=== PATIENT | male | born 1980 | race Caucasian/White ===

== ENCOUNTER 2019-04-10 11:36 | Emergency (ER) | payer BC ==
--- NOTE | 2019-04-10 12:13 | EKG REPORT ---
SEVERITY:- NORMAL ECG - SINUS RHYTHM ST ELEV, PROBABLE NORMAL EARLY REPOL PATTERN : Confirmed by: Lucia Pope MD 10-Apr-2019 12:12:12
[2019-04-10] MEDS ORDERED: TETRACAINE HCL 0.5% OPH SOLN 4 ML OS ONE (12:20)
--- NOTE | 2019-04-10 12:24 | ER Document Report ---
ED Medical Screen (RME) - General Chief Complaint: Chest Pain Stated Complaint: EYE PAIN Time Seen by Provider: 04/10/19 12:15 Mode of Arrival: Ambulatory Information source: Patient Notes: Patient is a 38-year-old male presenting to the emergency department with several complaints today. Complaint #1 is that he has a possible foreign body to his right eye. He reports yesterday he was working with metal and believes a metal shard went into the right eye. He has redness and pain to this area. He denies the use of any contact lenses, reports mildly blurred vision. Complaint #2 is left-sided chest pain that started this morning. He reports the pain starts in the sternal area and radiates up to his left chest into his left shoulder and down his left arm. He also reports it radiates straight through to his back. He reports associated shortness of breath and nausea but denies any diaphoresis. He reports the pain feels like an achy constant pain. Exam: Conjunctiva injected to right eye. No reproducible pain on the sternum or in the left chest however there is reproducible pain when he got up towards the left scapular area and shoulder. Lung sounds clear and equal bilaterally. I have greeted and performed a rapid initial assessment of this patient. A comprehensive ED assessment and evaluation of the patient, analysis of test results and completion of the medical decision making process will be conducted by additional ED providers. I have specifically instructed the patient or family members with the patient to immediately return to any nursing staff should anything change in the patient's condition or with their chief complaint. This medical record was dictated with voice recognizing software. There may be grammatical, syntax errors that are unintended. TRAVEL OUTSIDE OF THE [place] IN LAST 30 DAYS: No - Related Data Allergies/Adverse Reactions: No Known Allergies Allergy (Verified 04/10/19 11:37) Past Medical History - Social History Frequency of alcohol use: None Drug Abuse: None Renal/ Medical History: Denies: Hx Peritoneal Dialysis - Immunizations Hx Diphtheria, Pertussis, Tetanus Vaccination: Yes - 2006 Physical Exam - Vital signs Vitals: Temp Pulse Resp BP Pulse Ox 97.8 F 57 L 20 121/78 98 04/10/19 11:49 04/10/19 11:49 04/10/19 11:49 04/10/19 11:49 06/22/19 11:49 Course - Vital Signs Vital signs: Temp Pulse Resp BP Pulse Ox 97.8 F 57 L 20 121/78 98 04/10/19 11:49 04/10/19 11:49 04/10/19 11:49 04/10/19 11:49 04/10/19 11:49
[2019-04-10 13:08] LABS: MEAN CORPUSCULAR VOLUME 95 fl (80-97)
--- NOTE | 2019-04-10 13:12 | RADIOLOGY REPORT (SQ) ---
EXAM DESCRIPTION: CHEST SINGLE VIEW COMPLETED DATE/TIME: 04/10/2019 12:46 pm REASON FOR STUDY: chest pain COMPARISON: None. EXAM PARAMETERS: NUMBER OF VIEWS: One view. TECHNIQUE: Single frontal radiographic view of the chest acquired. RADIATION DOSE: NA LIMITATIONS: None. FINDINGS: LUNGS AND PLEURA: No opacities, masses or pneumothorax. No pleural effusion. MEDIASTINUM AND HILAR STRUCTURES: No masses. Contour normal. HEART AND VASCULAR STRUCTURES: Heart normal in size. Normal vasculature. BONES: No acute findings. HARDWARE: None in the chest. OTHER: No other significant finding. IMPRESSION: NO ACUTE RADIOGRAPHIC FINDING IN THE CHEST. TECHNICAL DOCUMENTATION: JOB ID: [id number] [employer]- All Rights Reserved Reading location - IP/workstation name: [email or web address]
[2019-04-10 13:23] LABS: ABSOLUTE BASOPHILS # (AUTO) 0.1 10^3/uL (0.0-0.2); ABSOLUTE EOSINOPHILS # (AUTO) 0.3 10^3/uL (0.0-0.6); ABSOLUTE LYMPHOCYTES (AUTO) 1.8 10^3/uL (0.5-4.7); ABSOLUTE MONOCYTES (AUTO) 0.5 10^3/uL (0.1-1.4); ABSOLUTE NEUT (AUTO) 9.2 10^3/uL (1.7-8.2); ALANINE AMINOTRANSFERASE 33 U/L (21-72); ALKALINE PHOSPHATASE 80 U/L (38-126); ANION GAP 11 (5-19); ASPARTATE AMINO TRANSFERASE 34 U/L (17-59); BASOPHILS % (AUTO) 0.5 % (0-2); BILIRUBIN,DIRECT 0.3 mg/dL (0.0-0.4); BILIRUBIN,TOTAL 0.7 mg/dL (0.2-1.3); BLOOD UREA NITROGEN 15 mg/dL (7-20); CALCIUM 10.4 mg/dL (8.4-10.2); CARBON DIOXIDE 24 mmol/L (22-30); CHLORIDE 104 mmol/L (98-107); CREATINE KINASE 248 U/L (55-170); EOSINOPHILS % (AUTO) 2.1 % (0-6); GLUCOSE 102 mg/dL (75-110); HEMATOCRIT 53.1 % (37.9-51.0); HEMOGLOBIN 18.1 g/dL (13.5-17.0); LYMPHOCYTES % (AUTO) 15.5 % (13-45); MEAN CORPUSCULAR HEMOGLOBIN 32.3 pg (27.0-33.4); MEAN CORPUSCULAR HGB CONC 34.2 g/dL (32.0-36.0); MONOCYTES % (AUTO) 4.5 % (3-13); PLATELET COUNT 293 10^3/uL (150-450); POTASSIUM 5.4 mmol/L (3.6-5.0); RED BLOOD COUNT 5.62 10^6/uL (4.35-5.55); SEGMENTED NEUTROPHILS % (AUTO) 77.4 % (42-78); SODIUM 138.9 mmol/L (137-145); TOTAL CELLS COUNTED % (AUTO) 100 %; TOTAL PROTEIN 7.7 g/dL (6.3-8.2); WHITE BLOOD COUNT 11.9 10^3/uL (4.0-10.5)
--- NOTE | 2019-04-10 15:26 | ER Document Report ---
ED General - General Chief Complaint: Chest Pain Stated Complaint: EYE PAIN Time Seen by Provider: 04/10/19 12:15 Mode of Arrival: Ambulatory Notes: 38-year-old male presents to the ER complaining of right eye pain and left chest pain. The patient states he rolled over in bed this morning and felt something pop in his chest and had sharp chest pain. He denies fever chills cough or sore throat. States is worse when he takes a deep breath or moves. He states he was just getting up to get out of bed this morning when this happened. Patient denies calf pain leg swelling denies black bloody or tarry stools he also states he was grinding some metal yesterday and got some of it in his right eye. He states his vision is otherwise well states he has some mild irritation and watering due to that. TRAVEL OUTSIDE OF THE [place] IN LAST 30 DAYS: No - Related Data Allergies/Adverse Reactions: No Known Allergies Allergy (Verified 04/10/19 11:37) Past Medical History - General Information source: Patient - Social History Smoking Status: Current Every Day Smoker Frequency of alcohol use: None Drug Abuse: None Family History: Reviewed & Not Pertinent Patient has suicidal ideation: No Patient has homicidal ideation: No Renal/ Medical History: Denies: Hx Peritoneal Dialysis - Immunizations Hx Diphtheria, Pertussis, Tetanus Vaccination: Yes - 2006 Review of Systems - Review of Systems Constitutional: denies: Chills, Fever EENT: Eye pain, Eye discharge. denies: Blurred vision Cardiovascular: Chest pain. denies: Palpitations, Heart racing, Orthopnea, Dyspnea, Syncope, Dizziness Respiratory: Hurts to breathe. denies: Cough, Hemoptysis, Short of breath, Sputum, Wheezing Gastrointestinal: denies: Abdominal pain, Nausea, Vomiting Genitourinary: denies: Burning, Dysuria Musculoskeletal: denies: Back pain -: Yes All other systems reviewed and negative Physical Exam - Vital signs Vitals: Temp Pulse Resp BP Pulse Ox 97.8 F 57 L 20 121/78 98 04/10/19 11:49 04/10/19 11:49 04/10/19 11:49 04/10/19 11:49 04/10/19 11:49 - Notes Notes: GENERAL_APPEARANCE: well_nourished, alert, cooperative, appears uncomfortable VITALS: reviewed, see vital signs table. HEAD: no_swelling\tenderness on the head. EYES: PERRL, EOMI, conjunctiva_injected right eye NOSE: no_nasal_discharge. MOUTH: (-)decreased moisture. Severe poor dentition diffusely multiple teeth rotted off at the gum THROAT: no_tonsilar_inflammation, no_airway_obstruction. no_lymphadenopathy NECK: supple, no_neck_tenderness, (-)thyromegaly. BACK: no_back_tenderness. CHEST_WALL: Left chest wall_chest_tenderness. No crepitus or subcutaneous emphysema LUNGS: no_wheezing, no_rales, no_rhonchi, (-)accessory muscle use, good air exchange bilateral. HEART: normal_rate, normal_rhythm, normal_S1, normal_S2, (-)S3, (-)S4, no_murmur, no_rub. ABDOMEN: normal_BS, soft, no_abd_tenderness, (-)guarding, (-)rebound, no_organomegaly, no_abd_masses. EXTREMITIES: good pulses in all_extremities, no_swelling\tenderness in the extremities, no_edema. SKIN: warm, dry, good_color, no_rash. MENTAL_STATUS: speech_clear, oriented_X_3, normal_affect, responds_appropriately to questions. NEURO: Neg Motor or Sensory Deficits on exam, CN 2-12 intact, DTR 2+ symmetric x 4, No cerbellar signs Course - Re-evaluation Re-evalutation: 04/10/19 15:23 38-year-old male arrives at the ER complaining of chest discomfort. The patient states he felt a pop where he rolled over to get a chest x-ray to be sure he did have a pneumothorax EKG shows a sinus rhythm no acute ST abnormalities. Patient otherwise low risk for ACS. His risk factors are low. Wells score is low for risk assessment for PE Patient's right eye had a small mickie of metal noted at the 10 o'clock position. The area was numbed with proparacaine/tetracaine. Using a cotton tip applicator I was able to pluck the piece of metal out without difficulty I the eye with floor seen and the crater did uptake floor seen but there is no centralized clearing. No other abrasions noted. Will prescribe antibiotic eyedrops for the patient for home and NSAIDs for his chest pain. - Vital Signs Vital signs: Temp Pulse Resp BP Pulse Ox 97.8 F 57 L 20 121/78 98 04/10/19 11:49 04/10/19 11:49 04/10/19 11:49 04/10/19 11:49 04/10/19 11:49 - Laboratory Result Diagrams: 04/10/19 12:25 04/10/19 12:25 Laboratory results interpreted by me: 04/10/19 04/10/19 12:25 12:25 WBC 11.9 H RBC 5.62 H Hgb 18.1 H Hct 53.1 H Absolute Neutrophils 9.2 H Potassium 5.4 H Calcium 10.4 H Creatine Kinase 248 H Discharge - Discharge Clinical Impression: Chest wall pain Foreign body in eye Qualifiers: Encounter type: initial encounter Laterality: right Qualified Code(s): T15.91XA - Foreign body on external eye, part unspecified, right eye, initial encounter Disposition: HOME, SELF-CARE Instructions: Chest Wall Pain ([facility]), Corneal Foreign Body with Rust ([facility]) Prescriptions: Ketorolac Tromethamine [Toradol 10 mg Tablet] 10 mg PO Q6HP PRN #12 tablet PRN Reason: Polymyxin B Sulf/Trimethoprim [Polytrim Eye Drops] 2 drop OD QID #10 ml
[2019-04-10 15:37] VITALS: BP 123/76
== END 2019-04-10 15:36 | disposition home or self-care (01) ==
LOC: ER 11:36
DX: R07.9 Chest pain, unspecified (principal); H57.11 Ocular pain, right eye; T15.91XA Foreign body on external eye, part unspecified, right eye, initial encounter; X58.XXXA Exposure to other specified factors, initial encounter; F17.200 Nicotine dependence, unspecified, uncomplicated
CPT/HCPCS: 93005; 99285; 36415; 82550; 85025; 80053; 84484; 71045; 93010; J3490